=== PATIENT | male | born 1975 | race Two or more races ===

== ENCOUNTER 2022-10-06 10:44 | Emergency (ER) | payer OTHER ==
[~2022-10-06] VITALS: Ht 175.3 cm; Wt 80.7 kg
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
[2022-10-06] MEDS ORDERED: HYDROCODONE/APAP 5/325MG TABLET PO ONE (12:30)
[2022-10-06] MEDS ORDERED: HYDROCODONE/APAP 5/325MG TABLET ONE (12:31)
[2022-10-06 15:06] VITALS: BP 142/60
== END 2022-10-06 15:07 | disposition home or self-care (01) ==
LOC: ER 11:05
DX: S40.012A Contusion of left shoulder, initial encounter (principal); Z60.2 Problems related to living alone; Y04.8XXA Assault by other bodily force, initial encounter; Y93.89 Activity, other specified; Y92.89 Other specified places as the place of occurrence of the external cause; Y99.8 Other external cause status
CPT/HCPCS: 73030-TC